=== PATIENT | male | born 1965 | race Caucasian/White ===

== ENCOUNTER 2021-01-24 03:29 | Emergency (ER) | payer OTHER ==
[~2021-01-24] VITALS: Ht 172.7 cm; Wt 81.7 kg
[2021-01-24] MEDS ORDERED: LISINOPRIL5 MG PO (03:43)
[2021-01-24] MEDS ORDERED: METFORMIN HCL500 M3 PO (03:43)
[2021-01-24] MEDS ORDERED: GLIPIZIDE 10 MG10 MG PO (03:43)
[2021-01-24] MEDS ORDERED: MOBIC15 MG PO (04:55)
[2021-01-24] MEDS ORDERED: NORCO5 PO (04:55)
[2021-01-24] MEDS ORDERED: MEDROLDOSEPACK PO (04:55)
[2021-01-24 05:05] VITALS: BP 142/88
== END 2021-01-24 05:05 | disposition home or self-care (01) ==
LOC: M.ERS 03:29
DX: M70.71 Other bursitis of hip, right hip (principal); Y93.89 Activity, other specified; E11.9 Type 2 diabetes mellitus without complications; I10 Essential (primary) hypertension

== ENCOUNTER → 2021-01-30 | Outpatient (CLI) | payer OTHER ==
[~2021-01-30] MED LIST: GLIPIZIDE 10 MG10 MG PO; LISINOPRIL5 MG PO; MEDROLDOSEPACK PO; METFORMIN HCL500 M3 PO; MOBIC15 MG PO; NORCO5 PO
== END ==
LOC: M.MRI 13:00
PROVIDERS: ATTEND Physician Assistant
DX: K57.30 Diverticulosis of large intestine without perforation or abscess without bleeding (principal); N40.0 Benign prostatic hyperplasia without lower urinary tract symptoms; M25.551 Pain in right hip